=== PATIENT | female | born 1940 | race Caucasian/White ===

== ENCOUNTER 2018-10-18 14:13 | Emergency (ER) | payer OTHER ==
--- NOTE | 2018-10-18 14:48 | RAD REPORT ---
EXAM DESCRIPTION: RAD - Chest Single View - 10/18/2018 2:43 pm CLINICAL HISTORY: syncope;Cough Chest pain. COMPARISON: CHEST PA AND LAT 2 VIEW dated 10/22/2012; CHEST PA AND LAT 2 VIEW dated 10/16/2012; CHEST P A AND LAT 2 VIEW dated 01/20/2003 FINDINGS: Portable technique limits examination quality. The lungs are mildly emphysematous with linear atelectasis suspected left base. The lungs are otherwi se clear. The heart is normal in size. No displaced fractures. IMPRESSION: COPD.
[2018-10-18] MEDS ORDERED: ONDANSETRON 4 MG/2 ML VIAL ONE (14:54)
[2018-10-18] MEDS ORDERED: NA CHLORIDE 0.9% 1,000 ML ONE (14:54)
--- NOTE | 2018-10-18 15:02 | RAD REPORT ---
EXAM DESCRIPTION: CT - Head Brain Wo Cont - 10/18/2018 2:56 pm CLINICAL HISTORY: vomiting;Syncope Hypertension, headache, syncope COMPARISON: No comparisons TECHNIQUE: All CT scans are performed using dose optimization technique as appropriate and may inclu de automated exposure control or mA/KV adjustment according to patient size. FINDINGS: No intracranial hemorrhage, hydrocephalus or extra-axial fluid collection.Mild generalized brain atrophy is present with mild periventricular and deep white matter chronic microvascular ische magdiel changes.No areas of brain edema or evidence of midline shift. The paranasal sinuses and mastoids are clear. The calvarium is intact. IMPRESSION: No acute intracranial abnormality.
[2018-10-18 15:09] LABS: Protime INR 1.08
[2018-10-18 15:10] LABS: Absolute Lymphocytes (CBC) 1.1 K/uL (0.7-4.9); Absolute Neutrophil 5.8 K/uL (1.8-8.0); Basophils % 1.1 % (0-1.3); Eosinophils % 0.7 % (0-4.4); Hematocrit 43.7 % (36.0-45.0); Lymphocytes % 13.2 % (15.3-44.8); MPV 7.9 fL (7.6-11.3); Monocytes % 12.8 % (3.3-12.3); RBC Red Blood Cell Count 4.88 M/uL (3.86-4.86)
[2018-10-18 15:23] LABS: ALT/SGPT 27 U/L (12-78); AST/SGOT 17 U/L (15-37); Albumin 3.4 g/dL (3.4-5.0); Alkaline Phosphatase 102 U/L (45-117); BUN Blood Urea Nitrogen 20 mg/dL (7-18); Bicarbonate 27 mmol/L (21-32); Bilirubin Direct 0.1 mg/dL (0-0.2); Bilirubin Total 0.5 mg/dL (0.2-1.0); Glucose Level 101 mg/dL (74-106); Magnesium 2.3 mg/dL (1.8-2.4); NT PRO-BNP 166 pg/mL (<450); Potassium 4.3 mmol/L (3.5-5.1); Protein, Total 7.3 g/dL (6.4-8.2); Sodium Level 140 mmol/L (136-145); Troponin (Emerg Dept Use Only) < 0.02 ng/mL (0.0-0.045)
--- NOTE | 2018-10-18 16:31 | EKG ---
Test Date: 2018-10-18 Test Time: 14:24:46 Database Support: OSWALDO MEASUREMENT RESULTS: Intervals: Rate: 73 PA: 136 QRSD: 68 QT: 378 QTc: 416 Honor: P: 48 PA: 136 QRS: 71 T: 67 INTERPRETIVE STATEMENTS: Normal sinus rhythm Normal ECG No previous ECG available for comparison Electronically Signed On 10-18-18 16:30:25 NOTE SPECIALIST by Nomi Abdi
[2018-10-18 16:33] LABS: Urine Blood NEGATIVE (NEG); Urine Glucose NEGATIVE (NEG); Urine Protein 2+ (NEG); Urine Specific Gravity 1.025 (1.005-1.030); Urine pH 5.5 (5.0-7.0)
[2018-10-18 16:43] LABS: Urine Bacteria <20 /HPF (<20); Urine Culture Reflex Order REFLEXED; Urine Mucus 2+ /HPF (NONE SEEN); Urine RBC <5 /HPF (NONE SEEN)
[2018-10-18 16:44] LABS: Urine Coarse Granular Casts >10 /LPF (NONE SEEN)
[2018-10-18] MEDS ORDERED: AMOX/K CLAV 875 MG TAB ONE (16:52)
--- NOTE | 2018-10-18 17:15 | ER ---
Nurse's Notes [facility] Name: Jeanie Carrington Age: 78 yrs Sex: Female : 1940 Arrival Date: 10/18/2018 Time: 14:15 Bed 13 Private MD: Diagnosis: Syncope and collapse;Streptococcal pharyngitis;Cough Presentation: 10/18 14:19 Presenting complaint: Patient states: Reports syncopal episode today just PR INTERN. Patient aj reports dizziness upon standing. Recently ill with flu like symptoms. Reports fever t max 101 yesterday. Transition of care: patient was not received from another setting of care. Onset of symptoms was October 18, 2018 at 14:20. Risk Assessment: Do you want to hurt yourself or someone else? Patient reports no desire to harm self or others. Initial Sepsis Screen: Does the patient meet any 2 criteria? No. Patient's initial sepsis screen is negative. Does the patient have a suspected source of infection? No. Patient's initial sepsis screen is negative. Care prior to arrival: Medication(s) given: Normal saline infusion, 500 mL, IV initiated. 20 GA, in the left antecubital area, Glucose check: 101. 14:19 Method Of Arrival: EMS: [facility] aj 14:19 Acuity: SHONNA 3 aj Triage Assessment: 14:21 General: Appears in no apparent distress. comfortable, Behavior is calm, cooperative, aj appropriate for age. Pain: Denies pain. Neuro: Level of Consciousness is awake, alert, obeys commands, Oriented to person, place, time, situation, Appropriate for age Reports a syncopal episode. Respiratory: Airway is patent Respiratory effort is even, unlabored, Respiratory pattern is regular, symmetrical. Derm: Skin is intact, is healthy with good turgor, Skin is pink, warm \T\ dry. normal. Historical: - Allergies: 14:21 Sulfa (Sulfonamide Antibiotics); aj 14:21 EGG/POULTRY; aj 17:14 Cipro; aj - Home Meds: 14:21 Unknown HTN med [Active]; aj - PMHx: 14:21 Hypertension; aj - Immunization history:: Adult Immunizations up to date. - Social history:: Smoking status: Patient/guardian denies using tobacco. - Ebola Screening: : Patient negative for fever greater than or equal to 101.5 degrees Fahrenheit, and additional compatible Ebola Virus Disease symptoms Patient denies exposure to infectious person Patient denies travel to an Ebola-affected area in the 21 days before illness onset No symptoms or risks identified at this time. Screenin:37 Abuse screen: Denies threats or abuse. Denies injuries from another. Nutritional aj screening: No deficits noted. Tuberculosis screening: No symptoms or risk factors identified. Fall Risk None identified. Assessment: 14:40 Reassessment: No changes from previously documented assessment. aj 14:53 Reassessment: Patient vomited, provider notified. Orders recieved. aj 16:27 Reassessment: Patient appears in no apparent distress at this time. No changes from aj previously documented assessment. Patient and/or family updated on plan of care and expected duration. Pain level reassessed. Patient is alert, oriented x 3, equal unlabored respirations, skin warm/dry/pink. Orthostatics done, no dizziness reported Patient states feeling better. Patient states symptoms have improved. Neuro: No deficits noted. Cardiovascular: No deficits noted. Rhythm is regular. 17:43 Reassessment: Patient appears in no apparent distress at this time. No changes from aj previously documented assessment. Patient and/or family updated on plan of care and expected duration. Pain level reassessed. Patient is alert, oriented x 3, equal unlabored respirations, skin warm/dry/pink. Patient states feeling better. Patient states symptoms have improved. Vital Signs: 14:27 BP 108 / 49; Pulse 72; Resp 18; Temp 98.6; Pulse Ox 94% on R/A; Weight 49.9 kg; Height aj 5 ft. 0 in. (152.40 cm); 15:48 BP 102 / 45; Pulse 84; Resp 20; Pulse Ox 97% on R/A; aj 16:22 BP 119 / 59 Supine; Pulse 86; Resp 20; Pulse Ox 96% on R/A; aj 16:24 BP 133 / 61 Sitting; Pulse 89; Resp 16; Pulse Ox 97% on R/A; aj 16:26 BP 131 / 66 Standing; Pulse 92; Resp 18; Pulse Ox 97% on R/A; aj 16:59 BP 119 / 85; Pulse 92; Resp 18; Temp 98.8(O); Pulse Ox 97% on R/A; [facility] 17:43 BP 134 / 73; Pulse 89; Resp 17; Pulse Ox 99% on R/A; aj 14:27 Body Mass Index 21.48 (49.90 kg, 152.40 cm) aj ED Course: 14:15 Patient arrived in ED. aj 14:18 Rafi Quijano PA is PHCP. cp 14:18 Rafi Cruz MD is Attending Physician. cp 14:19 Kamala Castaneda, RN is Primary Nurse. aj 14:20 Triage completed. aj 14:21 Arm band placed on left wrist. Patient placed in an exam room. aj 14:31 EKG done, by airbrush artist technical. reviewed by Rafi RACHEL. at1 14:37 Patient has correct armband on for positive identification. aj 14:37 Missed attempt(s): 20 gauge in left antecubital area. Bleeding controlled, band aid aj applied, catheter tip intact. 14:44 XRAY Chest (1 view) In Process Unspecified. EDMS 14:[address] vm2 14:56 CT Head Brain wo Cont In Process Unspecified. EDMS 17:34 James Brunson MD is Referral Physician. cp 17:43 No provider procedures requiring assistance completed. IV discontinued, intact, aj bleeding controlled, No redness/swelling at site. Pressure dressing applied. Administered Medications: 14:51 Drug: NS 0.9% 500 ml Route: IV; Rate: bolus; Site: left antecubital; aj 17:45 Follow up: Response: No adverse reaction; IV Status: Completed infusion; IV Intake: aj 500ml 14:51 CANCELLED (Duplicate Order): Zofran 4 mg IVP once; over 2 minutes aj 14:51 CANCELLED (Duplicate Order): NS 0.9% 500 ml IV at bolus once aj 14:52 Not Given (Other Intervention Used): Zofran 4 mg PO once aj 14:52 Drug: Zofran 4 mg Route: IVP; Site: left antecubital; aj 17:46 Follow up: Response: No adverse reaction; Nausea is decreased aj 15:00 Drug: NS 0.9% 1000 ml Route: IV; Rate: 75 ml/hr; Site: left antecubital; aj 17:45 Follow up: Response: No adverse reaction; IV Status: Order to discontinue infusion; IV aj Intake: 150ml 17:13 Drug: Augmentin 875 mg Route: PO; aj 17:47 Follow up: Response: No adverse reaction aj Intake: 17:45 IV: 500ml; Total: 500ml. aj 17:45 IV: 150ml; Total: 650ml. gary Outcome: 17:15 Discharge ordered by . pura 17:43 Discharged to home with friend. aj 17:43 Condition: good 17:43 Discharge instructions given to patient, Instructed on discharge instructions, follow up and referral plans. medication usage, Demonstrated understanding of instructions, follow-up care, medications, Prescriptions given X 1. 17:47 Patient left the ED. aj Signatures: Dispatcher [employer] EDKamala Saavedra, RN RN Kamala Cotton, wood type cutter EKG Tat1 Rafi Quijano PA PA cp Martinez, Maria [facility] Toya Che 2 Corrections: (The following items were deleted from the chart) 16:29 16:22 BP 119 / 59; Pulse 86bpm; Resp 20bpm; Pulse Ox 96% RA; aj aj 17:14 14:21 Allergies: Keflex; aj aj
--- NOTE | 2018-10-18 17:16 | EDPHYS ---
Physician Documentation [facility] Name: Jeanie Carrington Age: 78 yrs Sex: Female : 1940 Arrival Date: 10/18/2018 Time: 14:15 Bed 13 Private MD: ED Physician Rafi Cruz HPI: 10/18 14:20 This 78 yrs old Female presents to ER via EMS with complaints of Syncope. cp 14:20 The patient has experienced syncope, collapsed, lost consciousness. cp 14:20 Onset: The symptoms/episode began/occurred just prior to arrival. cp Historical: - Allergies: 14:21 Sulfa (Sulfonamide Antibiotics); aj 14:21 EGG/POULTRY; aj 17:14 Cipro; aj - Home Meds: 14:21 Unknown HTN med [Active]; aj - PMHx: 14:21 Hypertension; aj - Immunization history:: Adult Immunizations up to date. - Social history:: Smoking status: Patient/guardian denies using tobacco. - Ebola Screening: : Patient negative for fever greater than or equal to 101.5 degrees Fahrenheit, and additional compatible Ebola Virus Disease symptoms Patient denies exposure to infectious person Patient denies travel to an Ebola-affected area in the 21 days before illness onset No symptoms or risks identified at this time. ROS: 14:25 Constitutional: Negative for body aches, chills, fever, poor PO intake. cp 14:25 Eyes: Negative for injury, pain, redness, and discharge. cp Exam: 14:30 Constitutional: The patient appears in no acute distress, alert, awake, cp non-diaphoretic, non-toxic, well developed, well nourished. 14:30 Head/Face: Normocephalic, atraumatic. cp 14:32 ECG was reviewed by the Attending Physician. cp Vital Signs: 14:27 BP 108 / 49; Pulse 72; Resp 18; Temp 98.6; Pulse Ox 94% on R/A; Weight 49.9 kg; Height aj 5 ft. 0 in. (152.40 cm); 15:48 BP 102 / 45; Pulse 84; Resp 20; Pulse Ox 97% on R/A; aj 16:22 BP 119 / 59 Supine; Pulse 86; Resp 20; Pulse Ox 96% on R/A; aj 16:24 BP 133 / 61 Sitting; Pulse 89; Resp 16; Pulse Ox 97% on R/A; aj 16:26 BP 131 / 66 Standing; Pulse 92; Resp 18; Pulse Ox 97% on R/A; aj 16:59 BP 119 / 85; Pulse 92; Resp 18; Temp 98.8(O); Pulse Ox 97% on R/A; [facility] 17:43 BP 134 / 73; Pulse 89; Resp 17; Pulse Ox 99% on R/A; aj 14:27 Body Mass Index 21.48 (49.90 kg, 152.40 cm) MDM: 14:21 Patient medically screened. cp 10/18 14:16 Order name: Flu; Complete Time: 15:19 10/18 14:16 Order name: Strep; Complete Time: 15:19 10/18 15:19 Interpretation: Abnormal: GP A STREP SC \T\nbsp; GROUP A STREP SCREEN-- \T\nbsp; \T\nbsp; cp POSITIVE. 10/18 14:20 Order name: Basic Metabolic Panel; Complete Time: 15:41 cp 10/18 15:42 Interpretation: Normal except: BUN 20; CRE 1.53; GFR 33. cp 10/18 14:20 Order name: CBC with Diff; Complete Time: 15:19 cp 10/18 15:19 Interpretation: Normal except: RBC 4.88; LYM% 13.2; MN% 12.8. cp 10/18 14:20 Order name: LFT's; Complete Time: 15:41 cp 10/18 15:42 Interpretation: Normal except: GLOB 3.9; A/G 0.9. cp 10/18 14:20 Order name: Magnesium; Complete Time: 15:41 cp 10/18 14:20 Order name: NT PRO-BNP; Complete Time: 15:41 cp 10/18 14:20 Order name: PT-INR; Complete Time: 15:55 cp 10/18 17:05 Interpretation: PT 12.7; Reviewed. cp 10/18 14:20 Order name: Troponin (emerg Dept Use Only); Complete Time: 15:41 cp 10/18 14:20 Order name: Procalcitonin; Complete Time: 15:55 cp 10/18 14:20 Order name: UA MICROSCOPIC; Complete Time: 16:46 cp 10/18 16:46 Interpretation: Normal except: UWBC 5-10; SQEPI 5-10. cp 10/18 14:20 Order name: Lactate; Complete Time: 15:41 cp 10/18 14:20 Order name: Blood Culture Adult (2) cp 10/18 16:30 Order name: Urine Dipstick--Ancillary (enter results); Complete Time: 16:46 em1 10/18 16:46 Interpretation: Normal except: UKET 1+; UPROT 2+; UESTR TRACE. cp 10/18 14:20 Order name: XRAY Chest (1 view); Complete Time: 15:19 cp 10/18 15:19 Interpretation: Report review. 10/18 14:20 Order name: EKG; Complete Time: 14:22 cp 10/18 14:20 Order name: Cardiac monitoring; Complete Time: 16:39 cp 10/18 14:20 Order name: EKG - Nurse/Tech; Complete Time: 16:40 cp 10/18 14:20 Order name: IV Saline Lock; Complete Time: 16:39 cp 10/18 14:20 Order name: Labs collected and sent; Complete Time: 16:39 10/18 14:20 Order name: O2 Per Protocol; Complete Time: 16:39 cp 10/18 14:44 Order name: CT Head Brain wo Cont; Complete Time: 15:19 cp 10/18 15:20 Interpretation: Report reviewed. 10/18 16:46 Order name: Urine Culture EDMS 10/18 14:20 Order name: O2 Sat Monitoring; Complete Time: 16:39 cp 10/18 14:20 Order name: Urine Dipstick-Ancillary (obtain specimen); Complete Time: 16:30 10/18 14:21 Order name: Orthostatics; Complete Time: 16:30 cp EC:32 Rate is 73 beats/min. Rhythm is regular. NM interval is normal. QRS interval is normal. cp QT interval is normal. T waves are Inverted in lead aVL. Interpreted by me. Reviewed by me. Administered Medications: 14:51 Drug: NS 0.9% 500 ml Route: IV; Rate: bolus; Site: left antecubital; aj 17:45 Follow up: Response: No adverse reaction; IV Status: Completed infusion; IV Intake: aj 500ml 14:51 CANCELLED (Duplicate Order): Zofran 4 mg IVP once; over 2 minutes aj 14:51 CANCELLED (Duplicate Order): NS 0.9% 500 ml IV at bolus once aj 14:52 Not Given (Other Intervention Used): Zofran 4 mg PO once aj 14:52 Drug: Zofran 4 mg Route: IVP; Site: left antecubital; aj 17:46 Follow up: Response: No adverse reaction; Nausea is decreased aj 15:00 Drug: NS 0.9% 1000 ml Route: IV; Rate: 75 ml/hr; Site: left antecubital; aj 17:45 Follow up: Response: No adverse reaction; IV Status: Order to discontinue infusion; IV aj Intake: 150ml 17:13 Drug: Augmentin 875 mg Route: PO; aj 17:47 Follow up: Response: No adverse reaction aj Disposition: 10/19 07:00 Co-signature as Attending Physician, Rafi Cruz MD I agree with the assessment and [facility] plan of care. Disposition: 10/18/18 17:15 Discharged to Home. Impression: Syncope and collapse, Streptococcal pharyngitis, Cough. - Condition is Stable. - Discharge Instructions: Strep Throat, Syncope, Cough, Adult. - Prescriptions for Augmentin 875- 125 mg Oral Tablet - take 1 tablet by ORAL route every 12 hours for 10 days; 20 tablet. - Medication Reconciliation Form, Thank You Letter, Antibiotic Education, Prescription Opioid Use form. - Follow up: Private Physician; When: 2 - 3 days; Reason: Recheck today's complaints. Follow up: James Brunson MD; When: 2 - 3 days; Reason: syncope. - Problem is new. - Symptoms have improved. Signatures: Dispatcher [employer] Kamala Gonzalez RN RN aj Anderson, Corey, MD MD cha Page, Corey, PA PA cp Corrections: (The following items were deleted from the chart) 10/18 14:51 14:49 Zofran 4 mg IVP once; over 2 minutes ordered. aj aj 14:51 14:49 NS 0.9% 500 ml IV at bolus once ordered. aj aj 16:30 16:07 Faith ordered. cp aj 17:14 14:21 Allergies: Keflex; aj aj 17:16 17:15 10/18/2018 17:15 Discharged to Home. Impression: Syncope and collapse; cp Streptococcal pharyngitis. Condition is Stable. Forms are Medication Reconciliation Form, Thank You Letter, Antibiotic Education, Prescription Opioid Use. Follow up: Private Physician; When: 2 - 3 days; Reason: Recheck today's complaints. Problem is new. Symptoms have improved. cp 17:34 17:16 10/18/2018 17:15 Discharged to Home. Impression: Syncope and collapse; cp Streptococcal pharyngitis; Cough. Condition is Stable. Discharge Instructions: Strep Throat, Syncope, Cough, Adult. Prescriptions for Augmentin 875-125 mg Oral Tablet - take 1 tablet by ORAL route every 12 hours for 10 days; 20 tablet. and Forms are Medication Reconciliation Form, Thank You Letter, Antibiotic Education, Prescription Opioid Use. Follow up: Private Physician; When: 2 - 3 days; Reason: Recheck today's complaints. Problem is new. Symptoms have improved. cp 17:47 17:34 10/18/2018 17:15 Discharged to Home. Impression: Syncope and collapse; aj Streptococcal pharyngitis; Cough. Condition is Stable. Discharge Instructions: Strep Throat, Syncope, Cough, Adult. Prescriptions for Augmentin 875-125 mg Oral Tablet - take 1 tablet by ORAL route every 12 hours for 10 days; 20 tablet. and Forms are Medication Reconciliation Form, Thank You Letter, Antibiotic Education, Prescription Opioid Use. Follow up: Private Physician; When: 2 - 3 days; Reason: Recheck today's complaints. Follow up: James Brunson; When: 2 - 3 days; Reason: syncope. Problem is new. Symptoms have improved. cp
== END 2018-10-18 17:47 | disposition home or self-care (01) ==
LOC: ER 14:13
DX: J02.0 Streptococcal pharyngitis (principal); R05 Cough; R55 Syncope and collapse; I10 Essential (primary) hypertension; Z79.899 Other long term (current) drug therapy
CPT/HCPCS: 36415; 70450; 71045; 80048; 80076; 83605; 83735; 83880; 84145; 84484; 85025; 85610; 87040 ×2; 87081; 87088; 87804 ×2; 93005; 96361; 96374; 99284; J2405; J7030; 81003; 81015; 87086